=== PATIENT | female | born 1990 | race Caucasian/White ===

== ENCOUNTER 2018-07-21 09:39 | Outpatient (CLI) | payer BC | END 2018-07-21 09:40 | disposition critical access hospital (66) | LOC: EMS 09:39 | PROVIDERS: ATTEND Surgery | DX: M25.561 Pain in right knee (principal) ==

== ENCOUNTER 2018-07-21 11:03 | Emergency (ER) | payer BC ==
[2018-07-21 11:14] VITALS: BP 114/49
--- NOTE | 2018-07-21 12:20 | ED Physician Documentation ---
PD HPI LOWER EXT INJURY - Stated complaint Stated Complaint: KNEE PX - Chief complaint Chief Complaint: Ext Problem - History obtained from History obtained from: Patient - History of Present Illness PD HPI LOW EXT INJURY LOCATION: Right (She is chronic mild issues with the right knee. Today she was getting up from sitting crosslegged and her knee locked and she had severe pain although she declines pain medication. She points to the medial joint line as the site of the pain. There was no specific injury. She denies any possibility of .) Review of Systems Constitutional: reports: Reviewed and negative Cardiac: reports: Reviewed and negative Respiratory: reports: Reviewed and negative PD PAST MEDICAL HISTORY - Past Medical History HEENT: Other Psych: Depression, Anxiety, Post traumatic stress disorder Other Past Medical History: mitral valve prolapse - Present Medications Home Medications: Ambulatory Orders Medication Instructions Recorded Confirmed [place] 450 mg pe 07/21/18 Meloxicam [Mobic] 7.5 mg PO BID PRN #20 tablet 07/21/18 lamoTRIgine [LaMICtal] 200 mg PO DAILY 07/21/18 07/21/18 - Allergies Allergies/Adverse Reactions: Allergies Allergy/AdvReac Type Severity Reaction Status Date / Time Penicillins Allergy Hives Verified 07/21/18 11:08 - Social History Does the pt smoke?: No Smoking Status: Never smoker Does the pt drink ETOH?: No Does the pt have substance abuse?: No PD ED PE NORMAL - Vitals Vital signs reviewed: Yes - General General: Alert and oriented X 3, No acute distress - Extremities Extremities: Other (Right knee has a small effusion. She is mildly tender over the medial joint line. She has pain with testing of the medial collateral ligament and grind testing. ACL, PCL, and LCL seem okay.) - Neuro Neuro: Alert and oriented X 3, Normal speech Results - Vitals Vitals: Vital Signs - 24 hr 07/21/18 11:06 Temperature 36.7 C Heart Rate 93 Respiratory 16 Rate Blood Pressure 114/49 L O2 Saturation 100 Oxygen O2 Source Room air - Rads (name of study) R knee 4v Radiology: EMP read contemporaneously (normal) Departure - Departure Disposition: 01 Home, Self Care Clinical Impression: Internal derangement of right knee Condition: Good Record reviewed to determine appropriate education?: Yes Instructions: ED Meniscal Injury Knee Poss Follow-Up: [facility] [Provider Group] - Within 1 week Prescriptions: Meloxicam [Mobic] 7.5 mg PO BID PRN #20 tablet PRN Reason: Pain Comments: Follow-up with the orthopedic surgeons. Keep the splint on and dry until you follow-up with you do not need to wear it while bathing or sleeping.
--- NOTE | 2018-07-21 13:08 | XRAY Report ---
Reason: knee pain Procedure Date: 07/21/2018 Accession Number: [id number] / [id number] Procedure: XR - Knee 4 View RT CPT Code: FULL RESULT: EXAM: RIGHT KNEE RADIOGRAPHY EXAM DATE: 07/21/2018 12:57 PM. CLINICAL HISTORY: Knee pain. COMPARISON: None. TECHNIQUE: 4 views. FINDINGS: Bones: No fractures or bone lesions. Joints: No effusion. No subluxations. Soft Tissues: No soft tissue swelling. IMPRESSION: Negative knee radiography. [facility]
[2018-07-21] MEDS ORDERED: IBUPROFEN 600 MG TABLET PO STA (13:24)
== END 2018-07-21 13:35 | disposition home or self-care (01) ==
LOC: ED 11:03
DX: M23.91 Unspecified internal derangement of right knee (principal)
CPT/HCPCS: 73564; 99282; 99283; A9270

== ENCOUNTER 2018-07-23 15:41 | Emergency (ER) | payer BC ==
[2018-07-23] MEDS ORDERED: ACETAMINOPHEN 325 MG TABLET PO STA (16:12)
[2018-07-23] MEDS ORDERED: LIDOCAINE PATCH 5% TOP STA (16:12)
--- NOTE | 2018-07-23 16:19 | ED Physician Documentation ---
History of Present Illness - Stated complaint Stated Complaint: RIB PX - Chief complaint Chief Complaint: Resp - Additonal information Additional information: hx from pt 28 f states she coughed and felt a sharp pain to lower ant L ribs hurts to breathe move and touch denies preg Review of Systems Constitutional: denies: Fever Cardiac: reports: Chest pain / pressure Respiratory: reports: Cough GI: denies: Abdominal Pain : denies: Now EGA PD PAST MEDICAL HISTORY - Past Medical History Past Medical History: Yes HEENT: Other Psych: Depression, Anxiety, Post traumatic stress disorder - Past Surgical History Past Surgical History: No - Present Medications Home Medications: Ambulatory Orders Medication Instructions Recorded Confirmed [place] 450 mg pe 07/21/18 Meloxicam [Mobic] 7.5 mg PO BID PRN #20 tablet 07/21/18 lamoTRIgine [LaMICtal] 200 mg PO DAILY 07/21/18 07/21/18 Benzonatate [Tessalon Perle] 100 mg PO TID PRN #20 capsule 07/23/18 Ibuprofen [Motrin] 400 mg PO Q6H PRN #20 tablet 07/23/18 Lidocaine Patch 5% [Lidoderm Patch] 1 patch TOP DAILY PRN #10 patch 07/23/18 - Allergies Allergies/Adverse Reactions: Allergies Allergy/AdvReac Type Severity Reaction Status Date / Time Penicillins Allergy Hives Verified 07/23/18 15:47 - Social History Does the pt smoke?: No Smoking Status: Never smoker Does the pt drink ETOH?: No Does the pt have substance abuse?: No PD ED PE NORMAL - Vitals Vital signs reviewed: Yes - Cardiac Cardiac: RRR - Respiratory Respiratory: No respiratory distress, Clear bilaterally, Other (focal TTP low ant L ribs no crepitus) - Abdomen Abdomen: Soft, Non tender - Extremities Extremities: No edema, Other (knee brace for mensicus but ambulatory) - Neuro Neuro: Alert and oriented X 3 Results - Vitals Vitals: Vital Signs - 24 hr 07/23/18 15:44 Temperature 36.2 C L Heart Rate 94 Respiratory 15 Rate Blood Pressure 123/58 L O2 Saturation 100 Oxygen O2 Source Room air - Rads (name of study) CXR Radiology: See rad report (NACPD) PD MEDICAL DECISION MAKING - ED course ED course: in a knee brace but this does not sound like a PE at all - she coughed and felt a sharp pain and it hurts to palpate Departure - Departure Disposition: 01 Home, Self Care Clinical Impression: Chest wall pain Condition: Good Instructions: ED Strain Chest Wall Follow-Up: Nadir Nazario ARNP [Primary Care Provider] - Prescriptions: Benzonatate [Tessalon Perle] 100 mg PO TID PRN #20 capsule PRN Reason: Cough Ibuprofen [Motrin] 400 mg PO Q6H PRN #20 tablet PRN Reason: Pain Lidocaine Patch 5% [Lidoderm Patch] 1 patch TOP DAILY PRN #10 patch PRN Reason: pain Comments: The xray looks fine No broken ribs, no collapsed lung, no pneumonia I think you pulled the muscles between your ribs I have prescribed lidocaine and motrin patches for the pain and tessalon to ease your cough
--- NOTE | 2018-07-23 17:23 | XRAY Report ---
Reason: L lower rib pain after cough Procedure Date: 07/23/2018 Accession Number: [id number] / [id number] Procedure: XR - Chest 2 View X-Ray CPT Code: 87679 FULL RESULT: EXAM: CHEST RADIOGRAPHY EXAM DATE: 07/23/2018 04:57 PM. CLINICAL HISTORY: L lower rib pain after cough. COMPARISON: None available. TECHNIQUE: 2 views. FINDINGS: Lungs/Pleura: No consolidation, pleural effusion, or pneumothorax. Mediastinum: Heart and mediastinal contours are unremarkable. Other: No definite displaced rib fractures visualized. IMPRESSION: No acute cardiopulmonary findings. [facility]
[2018-07-23 17:59] VITALS: BP 112/62
== END 2018-07-23 17:57 | disposition home or self-care (01) ==
LOC: ED 15:41
DX: R07.89 Other chest pain (principal)
CPT/HCPCS: 71046; 99283; A9270

== ENCOUNTER 2018-08-26 13:58 | Outpatient (CLI) | payer BC ==
--- NOTE | 2018-08-27 10:02 | MRI Report ---
Reason: RT KNEE PAIN SWELLING Procedure Date: 08/26/2018 Accession Number: [id number] / [id number] Procedure: MRI - Knee RT W/O CPT Code: FULL RESULT: EXAM: RIGHT KNEE MRI WITHOUT CONTRAST EXAM DATE: 08/26/2018 03:05 PM. CLINICAL HISTORY: Right knee pain, swelling. COMPARISON: None. TECHNIQUE: Multiplanar, multisequence T1-weighted and fluid-sensitive sequences of the knee without contrast. Other: None. FINDINGS: Bones: No fractures or subluxations. No marrow edema. No bone lesions. Articular Cartilage: Unremarkable. Medial Meniscus: The medial meniscus is intact. Lateral Meniscus: The lateral meniscus is intact. Cruciate Ligaments: The anterior and posterior cruciate ligaments are intact. Collateral Ligaments: The medial collateral and lateral collateral ligamentous structures are intact. Tendons: The quadriceps and patellar tendon appear normal. There is high T2 signal in the distal popliteus tendon, which may indicate a partial thickness tear. Musculature: No edema or fatty atrophy. Other: Small joint effusion. No popliteal cyst. No loose bodies. The medial and lateral retinacula are intact. The subcutaneous tissues and fat pads are unremarkable. IMPRESSION: 1. Increased T2 signal in the distal popliteus tendon which may indicate a low-grade partial-thickness tear. 2. Small joint effusion. [facility] MUSCULOSKELETAL RADIOLOGY SECTION
== END 2018-08-26 13:59 | disposition home or self-care (01) ==
LOC: DI 13:58
PROVIDERS: ATTEND Orthopaedic Surgery
DX: M25.561 Pain in right knee (principal); M25.461 Effusion, right knee

== ENCOUNTER 2018-11-02 11:15 | Outpatient (CLI) | payer BC ==
[2018-11-02 18:48] LABS: RHEUMATOID FACTOR NEGATIVE (Negative)
[2018-11-04 13:25] LABS: ANA SCREEN NEGATIVE (NEGATIVE)
== END 2018-11-02 11:16 | disposition home or self-care (01) ==
LOC: LAB.F 11:15
PROVIDERS: ATTEND Nurse Practitioner Family
DX: M25.50 Pain in unspecified joint (principal)
CPT/HCPCS: 36415; 85651; 86038; 86140; 86200; 86430

== ENCOUNTER 2023-09-23 08:00 | Outpatient (CLI) | payer BC, OTHER ==
[2023-09-23 20:43] LABS: BACTERIAL VAGINOSIS DNA POSITIVE (NEGATIVE); CANDIDA GLABRATA DNA NEGATIVE (NEGATIVE); CANDIDA GROUP DNA NEGATIVE (NEGATIVE); CANDIDA KRUSEI DNA NEGATIVE (NEGATIVE); TRICHOMONAS VAGINALIS DNA NEGATIVE (NEGATIVE)
== END 2023-09-23 23:56 | disposition home or self-care (01) ==
LOC: LAB.WC 08:00
PROVIDERS: ATTEND Obstetrics & Gynecology
DX: N89.8 Other specified noninflammatory disorders of vagina (principal)
CPT/HCPCS: 81514

== ENCOUNTER 2023-12-07 08:39 | Outpatient (CLI) | payer OTHER ==
[2023-12-07 14:31] LABS: HGB - HEMOGLOBIN 13.2 g/dL (12.0-16.0); MEAN CORPUSCULAR HGB CONC 30.7 g/dL (32.0-36.0); MEAN CORPUSCULAR VOLUME 94.5 fL (81.0-99.0); MEAN PLATELET VOLUME 9.3 fL (7.9-10.8); RED BLOOD COUNT 4.55 10^6/uL (4.20-5.40); RED CELL DISTRIBUTION WIDTH 12.3 % (12.0-15.0); WHITE BLOOD COUNT 6.6 x10^3/uL (4.8-10.8)
[2023-12-07 15:10] LABS: CHOL/HDL RATIO 2.5 (<4.4); CHOLESTEROL 206 mg/dL; HDL CHOLESTEROL 83 mg/dL; LDL CHOLESTEROL,CALCULATED 95 mg/dL; LDL/HDL RATIO 1.1 (<4.4); TRIGLYCERIDES 141 mg/dL (48-352); VLDL CHOLESTEROL 28 mg/dL
[2023-12-07 19:47] LABS: ESTIMATED AVERAGE GLUCOSE 91 mg/dL (70-100); HEMOGLOBIN A1c% 4.8 % (4.27-6.07)
[2023-12-08 05:12] LABS: RPR Non Reactive (Non Reactive)
[2023-12-08 07:10] LABS: HIV SCREEN 4TH GENERATION Non Reactive (Non Reactive)
== END 2023-12-07 08:40 | disposition home or self-care (01) ==
LOC: LAB.S 08:39
PROVIDERS: ATTEND Physician Assistant
DX: Z01.411 Encounter for gynecological examination (general) (routine) with abnormal findings (principal); N93.9 Abnormal uterine and vaginal bleeding, unspecified; Z11.3 Encounter for screening for infections with a predominantly sexual mode of transmission
CPT/HCPCS: 36415; 80061; 83036; 83721; 84443; 85027; 86592; 87389

== ENCOUNTER 2024-01-20 13:30 | Outpatient (CLI) | payer OTHER ==
--- NOTE | 2024-01-20 15:15 | XRAY Report ---
Foot 3+V RT HISTORY: 34 years of age, ANKLE PAIN, RIGHT TECHNIQUE: Foot 3+V RT COMPARISON: None. FINDINGS/IMPRESSION: No acute fracture or dislocation. Joint spaces are well maintained. Moderate tibiotalar effusion. Reviewed by: Meghana Llanes MD on 01/20/2024 3:14 PM PDT Approved by: Meghana Llanes MD on 01/20/2024 3:14 PM PDT Station ID: [id number]
--- NOTE | 2024-01-20 16:30 | XRAY Report ---
PROCEDURE: Ankle 3+V RT INDICATIONS: ANKLE PAIN, RIGHT TECHNIQUE: 3 views of the ankle were acquired. COMPARISON: None. FINDINGS: Bones: No fractures or dislocations. Ankle mortise is normally aligned. No suspicious bony lesions . Soft tissues: Moderate tibiotalar joint effusion. Achilles tendon appears normal. Swelling about th e ankle. IMPRESSION: No displaced fractures. Moderate joint effusion. Internal derangement not excluded. Reviewed by: Albert Guerrero MD on 01/20/2024 4:29 PM PDT Approved by: Albert Guerrero MD on 01/20/2024 4:29 PM PDT Station ID: [id number]
== END 2024-01-20 13:45 | disposition home or self-care (01) ==
LOC: DI.N 13:30
PROVIDERS: ATTEND Physician Assistant Medical
DX: M25.571 Pain in right ankle and joints of right foot (principal); M25.471 Effusion, right ankle